=== PATIENT | female | born 1965 | race Caucasian/White ===

== ENCOUNTER 2020-07-30 21:06 | Emergency (ER) | payer OTHER ==
[~2020-07-30] VITALS: Ht 162.6 cm; Wt 63.5 kg
[~2020-07-30 21:06] MED LIST: HYDR-4354 PO; MORP30TA7 PO; TIZA4TAB5 PO; ZOLP10TA6 PO
--- NOTE | 2020-07-30 22:12 | NUR ---
BROUGHT TO CT AND BACK.
[2020-07-30] MEDS ORDERED: PENI500T PO (22:57)
[2020-07-30] MEDS ORDERED: PENICILLIN V POTASSIUM 500 MG TABLET PO ONE ×2 (23:00→23:03)
[2020-07-30 23:17] VITALS: BP 118/75
--- NOTE | 2020-07-30 23:17 | NUR ---
Patient discharged to home in stable condition. Written and verbal after care instructions given. Patient verbalizes understanding of instruction. Pt ambulatory with a steady gait
== END 2020-07-30 23:18 ==
LOC: ER 21:09
DX: S00.03XA Contusion of scalp, initial encounter (principal); K04.7 Periapical abscess without sinus; I10 Essential (primary) hypertension; G40.909 Epilepsy, unspecified, not intractable, without status epilepticus; Z90.49 Acquired absence of other specified parts of digestive tract; Z98.890 Other specified postprocedural states; Z88.5 Allergy status to narcotic agent; Z79.899 Other long term (current) drug therapy; Y04.0XXA Assault by unarmed brawl or fight, initial encounter; Y93.89 Activity, other specified; Y92.89 Other specified places as the place of occurrence of the external cause; Y99.8 Other external cause status
CPT/HCPCS: 70450-TC; 70490-TC